=== PATIENT | female | born 1965 ===

== ENCOUNTER 2018-04-26 04:05 | Emergency (ER) | payer BC ==
[2018-04-26] MEDS ORDERED: SODIUM CHLORIDE 0.9% FLUSH 10 ML SOL IV PRN (04:14)
[2018-04-26] MEDS ORDERED: ALUMINUM/MAGNESIUM 30 ML SUS PO ONE (04:17)
[2018-04-26] MEDS ORDERED: LIDOCAINE HCL 2% (VISCOUS) 20 ML SOL MT ONE (04:17)
[2018-04-26] MEDS ORDERED: LIDOCAINE HCL 2% (VISCOUS) 20 ML SOL ONE (04:21)
[2018-04-26] MEDS ORDERED: ALUMINUM/MAGNESIUM 30 ML SUS ONE (04:21)
[2018-04-26 04:33] LABS: BASOPHILS % (AUTO) 0 % (0-3); EOSINOPHILS % (AUTO) 0 % (0-9); HEMATOCRIT 43 % (35-47); HEMOGLOBIN 13.9 gm/dl (12.0-15.5); LYMPHOCYTES % (AUTO) 9.6 % (10-50); MEAN CORPUSCULAR HEMOGLOBIN 29.9 pg (27.0-32.0); MEAN CORPUSCULAR HGB CONC 32.7 gm/dl (32.0-36.0); MEAN CORPUSCULAR VOLUME 92 fL (81-99); NEUTROPHILS % (AUTO) 82.6 % (37-80)
[2018-04-26 04:52] LABS: ALBUMIN 3.5 gm/dl (3.4-5.0); ALKALINE PHOSPHATASE 73 IU/L (46-116); ALT 23 IU/L (14-63); AST 17 IU/L (15-37); BILIRUBIN,TOTAL 0.7 mg/dl (0.2-1.0); BLOOD UREA NITROGEN 10 mg/dl (7-18); CALCIUM 8.7 mg/dl (8.5-10.1); CARBON DIOXIDE 28.5 mEq/L (21-32); CHLORIDE 103 mMol/L (98-107); CREATINE KINASE 34 U/L (26-192); GLUCOSE 116 mg/dl (74-106); POTASSIUM 3.5 mMol/L (3.5-5.1); SODIUM 142 mMol/L (136-145); TOTAL PROTEIN 6.5 gm/dl (6.4-8.2); TROP I < 0.017 ng/ml (0.000-0.056)
[2018-04-26 05:19] LABS: APPEARANCE,URINE Slightly Cloudy; BILIRUBIN,URINE NEGATIVE (NEGATIVE); COLOR,URINE Yellow; GLUCOSE, URINE (UA) NEGATIVE (NEGATIVE); KETONES,URINE 1+ (NEGATIVE); LEUKOCYTE ESTERASE ,URINE NEGATIVE (NEGATIVE); NITRATE,URINE POSITIVE (NEGATIVE); OCCULT BLOOD,URINE TRACE INTACT (NEG-TRACE); UROBILINOGEN,URINE 0.2 (0.2-1.0 EU)
[2018-04-26 05:33] LABS: BACTERIA 2+ (< 1+); CRYSTALS NEGATIVE (0-3 AVE/HPF); EPITHELIAL CELLS 0-3 (SQUAMOUS); RBC,URINE 20-25 (0-3AV/HPF)
[2018-04-26] MEDS ORDERED: PANTOPRAZOLE SODIUM 40 MG ECT PO ONE ×2 (06:09→06:12)
[2018-04-26 06:38] VITALS: TEMP 98
[2018-04-26 06:39] VITALS: BP 109/75; PULSE 75; RESP 22; O2SAT 97
== END 2018-04-26 06:33 | disposition home or self-care (01) ==
LOC: ED 04:05
DX: R10.33 Periumbilical pain (principal)
CPT/HCPCS: 36415; 71045; 80053; 81001; 82550; 84484; 85025; 87088; 93005; 99283; 99284; A9270-GY